=== PATIENT | female | born 1940 | race Caucasian/White ===

== ENCOUNTER 2023-02-03 13:15 | Emergency (ER) | payer MEDICARE, SELFPAY ==
--- NOTE | ~2023-02-03 | CT_ITS ---
CT HEAD WITHOUT IV CONTRAST CT CERVICAL SPINE WITHOUT IV CONTRAST INDICATION: Fall. COMPARISON: None available. TECHNIQUE: Multidetector CT acquisitions of the head and cervical spine were obtained without IV contrast. Multiplanar reformats were acquired and utilized for image interpretation. This CT examination was performed using dose optimization techniques as appropriate, variously including the following: *Automated exposure control *Adjustment of mA and/or kV according to patient size (this includes techniques or standardized protocols for targeted exams where dose is matched to indication/reason for exam; i.e. extremities or head) *Use of iterative reconstruction technique FINDINGS: HEAD: There is no intracranial hemorrhage, hydrocephalus, extra-axial surface collection, midline shift, or other herniation pattern. Howard to white matter differentiation is diffusely maintained without evidence of an evolved acute territorial infarct. The basilar cisterns are preserved. Anterior left frontal scalp/left periorbital hematoma. No visualized fractures. CERVICAL SPINE: Degenerative appearing anterior subluxation of C3 on C4, C4 on C5, and C6 on C7. No acute fractures. There is multilevel degenerative disc disease that is greatest at C5-C6 and there is advanced multilevel hypertrophic facet arthropathy. Partially calcified retrodental pannus. Hypertrophic degenerative changes involving the atlantodental interval. Cranial cervical junction is intact. There is no prevertebral soft tissue swelling. CT/CT head/brain wo IV con IMPRESSION: - No acute intracranial abnormality. Anterior left frontal scalp/left periorbital hematoma. No visualized fractures. - No acute osseous abnormality within the cervical spine. Cervical spondylosis.
--- NOTE | ~2023-02-03 | CT_ITS ---
CT FACIAL BONES WITHOUT IV CONTRAST CLINICAL INFORMATION: Fall with left forehead hematoma. COMPARISON: Head CT 02/03/2023. TECHNIQUE: A multidetector CT acquisition of the maxillofacial region is obtained without contrast. Multiplanar reformats are acquired and utilized for image interpretation. This CT examination was performed using dose optimization techniques as appropriate, variously including the following: *Automated exposure control *Adjustment of mA and/or kV according to patient size (this includes techniques or standardized protocols for targeted exams where dose is matched to indication/reason for exam; i.e. extremities or head) *Use of iterative reconstruction technique FINDINGS: There are no acute maxillofacial fractures. Large left frontal scalp/periorbital hematoma. The bony orbits are intact. Leftward deviation of the nasal septum with a leftward directed nasal septal spur. Mild mucosal thickening throughout the ethmoid air cells bilaterally and within the maxillary sinuses and inferior frontal sinuses bilaterally. The mastoid air cells and middle ear cavities are clear. Degenerative changes involving the right TMJ. CT/CT facial bones wo IV con IMPRESSION: There are no acute maxillofacial fractures. Large left frontal scalp/periorbital hematoma.
--- NOTE | ~2023-02-03 | CT_ITS ---
CT HEAD WITHOUT IV CONTRAST CT CERVICAL SPINE WITHOUT IV CONTRAST INDICATION: Fall. COMPARISON: None available. TECHNIQUE: Multidetector CT acquisitions of the head and cervical spine were obtained without IV contrast. Multiplanar reformats were acquired and utilized for image interpretation. This CT examination was performed using dose optimization techniques as appropriate, variously including the following: *Automated exposure control *Adjustment of mA and/or kV according to patient size (this includes techniques or standardized protocols for targeted exams where dose is matched to indication/reason for exam; i.e. extremities or head) *Use of iterative reconstruction technique FINDINGS: HEAD: There is no intracranial hemorrhage, hydrocephalus, extra-axial surface collection, midline shift, or other herniation pattern. Howard to white matter differentiation is diffusely maintained without evidence of an evolved acute territorial infarct. The basilar cisterns are preserved. Anterior left frontal scalp/left periorbital hematoma. No visualized fractures. CERVICAL SPINE: Degenerative appearing anterior subluxation of C3 on C4, C4 on C5, and C6 on C7. No acute fractures. There is multilevel degenerative disc disease that is greatest at C5-C6 and there is advanced multilevel hypertrophic facet arthropathy. Partially calcified retrodental pannus. Hypertrophic degenerative changes involving the atlantodental interval. Cranial cervical junction is intact. There is no prevertebral soft tissue swelling. CT/CT cervical spine wo IV con IMPRESSION: - No acute intracranial abnormality. Anterior left frontal scalp/left periorbital hematoma. No visualized fractures. - No acute osseous abnormality within the cervical spine. Cervical spondylosis.
[2023-02-03 13:54] VITALS: BP 169/87; PULSE 107; RESP 16; TEMP 36.6; O2SAT 99; BMI 25.4
--- NOTE | 2023-02-03 13:58 | ED.GENADULT ---
HPI - General Adult General Chief complaint: Fall Stated complaint: Forehead Injury S/P Fall 02/03/23 Time Seen by Provider: 02/03/23 18:30 History of Present Illness HPI narrative: The patient tripped and with driveway earlier this morning. She struck her head near the left eye. She has developed a lot of bruising around the left eye and also had some persistent bleeding from the eyebrow area. She has had a headache. There was no loss of consciousness. She does not feel that she has any injury to the eye itself. Related Data Allergies Allergy/AdvReac Type Severity Reaction Status Date / Time Unable to Assess Allergy Verified 02/03/23 13:54 Review of Systems Review of Systems: Yes all other systems are reviewed and are negative Physical Exam ED Vital Signs: Vital Signs - 24 hr 02/03/23 13:54 Temperature 98 F Pulse Rate 107 H Respiratory Rate 16 Blood Pressure 169/87 H Pulse Oximetry 99 Oxygen Delivery Method Room Air BMI result Body Mass Index 25.4 Const Other: The patient is awake and alert. She is a very pleasant 82-year-old. She seems quite healthy for her age. She has a lot of bruising to the left periorbital area but otherwise seems well HENMT Other: There is a lot of left periorbital swelling. The eyelids are quite swollen. There is a lot of ecchymotic skin change. There are 2 abrasions in the region of the left eyebrow which were oozing blood. Eyes Other: The patient's right eye was normal. The patient's left eye was difficult to visualize because of the swelling of the left eyelids which were swollen and ecchymotic. I was able to open the eyelids with some difficulty and visualized left eye. The left eye did not seem injured. Pupils are round equal, conjunctivae are clear, extraocular movements are intact. No pain with upward gaze. Neck Other: Mild diffuse posterior C-spine tenderness. Resp Other: No respiratory distress. Lungs are clear. Cardio Other: Patient has a regular rate and rhythm with no murmur Neuro Other: The patient is awake, alert, pleasant, cooperative. Mental status is normal. GCS 15. Cranial nerves seem intact. She moves her extremities normally and seems neurologically intact. Extrem Other: No signs of significant injuries to the extremities. Course Course Course Narrative: This is a rapid medical exam: Additional HPI, ROS, PE not included below will be deferred to primary provider. Patient is an 82-year-old female presenting to the ED after a mechanical trip and fall onto asphalt this morning. +hematoma to left forehead. Patient reports mild headache, denies vision changes or loss of consciousness. Not anticoagulated. Plan: CT head, neck, facial bones Medical Decision Making Medical Decision Making MDM Narrative: The patient had had a head CT, facial bone CT, cervical spine CT ordered prior to my evaluation. These show no intracranial hemorrhage or fractures. The patient has a lot of swelling around the left eye. There are 2 small areas of abrasion near the left eyebrow. One of these was oozing blood fairly continuously. I therefore applied tissue adhesive to these abrasions for hemostasis. This seemed to provide good hemostasis. The patient was advised to rest and take it easy over the next several days. She may use ice and Tylenol. She should contact her regular doctor if any questions or return to the emergency room if worse. Discharge Plan Discharge Clinical Impression: Contusion of face, Facial abrasion, Fall, Head injury Patient Disposition: Home, Self-Care Additional Instructions: You have a lot of bruising from your fall but no underlying broken bones or other worrisome internal injury. You have a lot of swelling and bruising around your left eye. This may get worse before it feels better. You had some abrasions to the forehead which were bleeding. I applied adhesive glue to help stop the bleeding. The glue will fall off after several days. I would recommend resting and taking it easy for the next couple of days. People can feel somewhat unwell after head injury. You may use acetaminophen and ibuprofen as needed for pain. Please follow-up with your regular doctor if you have any ongoing concerns. Return to the emergency room if worse. Referrals: Sariah Arnold MD [Primary Care Provider] - (facial injuries)
[2023-02-03 18:59] VITALS: BP 156/96; PULSE 78; RESP 19; O2SAT 98
== END 2023-02-03 19:01 | disposition home or self-care (01) ==
PROVIDERS: Emergency Provider Emergency Medicine; PCP Internal Medicine
DX: S00.83XA Contusion of other part of head, initial encounter (principal); S00.12XA Contusion of left eyelid and periocular area, initial encounter; S00.81XA Abrasion of other part of head, initial encounter; S09.90XA Unspecified injury of head, initial encounter; W01.0XXA Fall on same level from slipping, tripping and stumbling without subsequent striking against object, initial encounter; Y93.9 Activity, unspecified; Y92.9 Unspecified place or not applicable; Y99.9 Unspecified external cause status; R51.9 Headache, unspecified
CPT/HCPCS: 70450; 70486; 72125; 99283; 99284